=== PATIENT | male | born 1990 | race Hispanic/Latino ===

== ENCOUNTER 2017-03-02 00:22 | Emergency (ER) | payer SELFPAY | END 2017-03-02 01:13 | disposition home or self-care (01) | LOC: EDH 00:22 | DX: R53.81 Other malaise (principal); E11.9 Type 2 diabetes mellitus without complications; I10 Essential (primary) hypertension; Z72.0 Tobacco use | CPT/HCPCS: 82948 ==

== ENCOUNTER 2018-04-27 14:38 | Emergency (ER) | payer OTHER ==
[2018-04-27] MEDS ORDERED: ASPIRIN 325 MG TABLET ONE (15:25)
[2018-04-27 15:40] LABS: BASOPHILS % (AUTO) 0.9 % (0.0-5.0); EOSINOPHILS % (AUTO) 1.2 % (0.0-8.0); HEMATOCRIT 47.3 % (42-54); LYMPHOCYTES % (AUTO) 26.1 % (21.0-51.0); MEAN CORPUSCULAR HEMOGLOBIN 28.5 pg (27.0-33.0); MEAN CORPUSCULAR HGB CONC 32.7 g/dL (32.0-36.0); MEAN CORPUSCULAR VOLUME 87.2 fL (79-99); MONOCYTES % (AUTO) 7.3 % (3.0-13.0); NEUTROPHILS % (AUTO) 64.5 % (40.0-77.0); PLATELET COUNT (AUTO) 233 K/uL (130-400); RED BLOOD CELL COUNT(AUTO) 5.42 MIL/uL (4.50-6.20); RED CELL DISTRIBUTION WIDTH 15.3 % (11.0-15.5); WHITE BLOOD COUNT (AUTO) 7.2 K/uL (4.8-10.8)
[2018-04-27 15:55] LABS: AMPHET/METH SCREEN,URINE NEGATIVE (NEGATIVE); BARBITURATE SCREEN, URINE NEGATIVE (NEGATIVE); BENZODIAZEPINES SCREEN,URINE NEGATIVE (NEGATIVE); CANNABINOID SCREEN,URINE NEGATIVE (NEGATIVE); COCAINE SCREEN,URINE POSITIVE (NEGATIVE); OPIATE SCREEN,URINE NEGATIVE (NEGATIVE); PHENCYCLIDINE SCREEN,URINE NEGATIVE (NEGATIVE)
[2018-04-27 16:04] LABS: CREATININE 0.9 mg/dL (0.5-1.5)
[2018-04-27 16:28] LABS: ALBUMIN 4.2 g/dL (3.5-5.0); BILIRUBIN,TOTAL 0.2 mg/dL (0.2-1.0)
== END 2018-04-27 18:32 | disposition home or self-care (01) ==
LOC: EDH 14:38
DX: F14.10 Cocaine abuse, uncomplicated (principal); R07.89 Other chest pain; E11.9 Type 2 diabetes mellitus without complications; I10 Essential (primary) hypertension; Z72.0 Tobacco use
CPT/HCPCS: 36415; 80053; 80305; 84484; 85025; 93005

== ENCOUNTER 2019-11-07 22:16 | Emergency (ER) | payer OTHER ==
[2019-11-07] MEDS ORDERED: ONDANSETRON HCL 4 MG/2 ML VIAL ONE (23:52)
[2019-11-08 00:20] LABS: BASE EXCESS,VENOUS BLOOD GAS 0.9 (-2.0-3.0); HCO3,VENOUS BLOOD GAS 28.4 (21.0-28.0); PCO2,VENOUS BLOOD GAS 57 (35-48); PH,VENOUS BLOOD GAS 7.317 (7.350-7.450)
[2019-11-08 00:41] LABS: RAPID GROUP A STREP NEGATIVE (NEGATIVE)
[2019-11-08 00:44] LABS: CREATININE 0.9 mg/dL (0.5-1.5); POTASSIUM 4.3 mmol/L (3.5-5.1)
[2019-11-08 00:49] LABS: BILIRUBIN,TOTAL 0.3 mg/dL (0.2-1.0); TOTAL PROTEIN, SERUM 7.7 g/dL (6.0-8.3)
[2019-11-08 00:50] LABS: BASOPHILS % (AUTO) 0.7 % (0.0-5.0); EOSINOPHILS % (AUTO) 1.8 % (0.0-8.0); HEMATOCRIT 48.8 % (42-54); LYMPHOCYTES % (AUTO) 33.6 % (21.0-51.0); MEAN CORPUSCULAR HEMOGLOBIN 29.1 pg (27.0-33.0); MEAN CORPUSCULAR HGB CONC 32.2 g/dL (32.0-36.0); MEAN CORPUSCULAR VOLUME 90.5 fL (79-99); MONOCYTES % (AUTO) 11.7 % (3.0-13.0); NEUTROPHILS % (AUTO) 51.9 % (40.0-77.0); PLATELET COUNT (AUTO) 263 K/uL (130-400); RED BLOOD CELL COUNT(AUTO) 5.39 MIL/uL (4.50-6.20); RED CELL DISTRIBUTION WIDTH 12.5 % (11.0-15.5); WHITE BLOOD COUNT (AUTO) 7.4 K/uL (4.8-10.8)
[2019-11-08 02:21] LABS: APPEARANCE,URINE Clear (CLEAR); BILIRUBIN,URINE Negative (NEGATIVE); COLOR,URINE Yellow (YELLOW); GLUCOSE, URINE (UA) Negative (NEGATIVE); KETONES,URINE Negative (NEGATIVE); LEUKOCYTE ESTERASE ,URINE Small (NEGATIVE); NITRATE,URINE Negative (NEGATIVE); OCCULT BLOOD,URINE Negative (NEGATIVE); PH,URINE 6.5 (5.0-8.0); PROTEIN,URINE Negative (NEGATIVE)
[2019-11-08 02:32] LABS: AMPHET/METH SCREEN,URINE NEGATIVE (NEGATIVE); BARBITURATE SCREEN, URINE NEGATIVE (NEGATIVE); BENZODIAZEPINES SCREEN,URINE NEGATIVE (NEGATIVE); CANNABINOID SCREEN,URINE POSITIVE (NEGATIVE); COCAINE SCREEN,URINE POSITIVE (NEGATIVE); OPIATE SCREEN,URINE NEGATIVE (NEGATIVE); PHENCYCLIDINE SCREEN,URINE NEGATIVE (NEGATIVE)
[2019-11-08 02:54] LABS: BACTERIA,URINE Few /HPF (None Seen); SQUAMOUS EPITHELIAL CELL,UR 0-2 /HPF (0-2)
== END 2019-11-08 03:44 | disposition home or self-care (01) ==
LOC: EDH 22:16
DX: B34.9 Viral infection, unspecified (principal); Z20.828 Contact with and (suspected) exposure to other viral communicable diseases; I10 Essential (primary) hypertension; E11.9 Type 2 diabetes mellitus without complications; F14.90 Cocaine use, unspecified, uncomplicated
CPT/HCPCS: 36415; 36600; 71045; 80053; 80305; 81001; 82010; 82550; 82803; 83605; 83690; 85025; 87426; 87804 ×2; 87880; 96361; 96374; 99284; J2405; J7030; U0003